=== PATIENT | female | born 1980 | race Caucasian/White ===

== ENCOUNTER 2021-05-03 08:27 | Day surgery (SDC) | payer OTHER ==
[2021-04-28 17:36] LABS: Hemoglobin 14.1 g/dL (12.0-15.5); Mean Corpuscular HGB CONC 33.7 g/dL (32.0-36.0); Mean Corpuscular Hemoglobin 29.4 pg (27.0-33.0); Mean Corpuscular Volume 87.3 fl (81.6-98.3); Mean Platelet Volume 9.8 fl (7.4-10.4); Platelet Count 308 10x3/uL (150-450); RBC Distribution Width 12.8 % (11.5-14.5); White Blood Cell (WBC) Count 8.8 10x3/uL (3.5-10.5)
[2021-04-28 17:48] LABS: BHCG - Serum Negative (NEGATIVE); Pregs Control Background? CLEAR/WHITE (CLR/WHITE); Pregs Control Bar Appear? YES (CONTROL BAR)
[2021-04-29 21:35] LABS: SARS-CoV-2 PCR by NAA Not Detected (NotDetected)
[2021-05-02 10:19] VITALS: BMI 27.3
[~2021-05-03 08:27] MED LIST: CeleCOXIB 100 MG CAP ONE; Famotidine/PF 20 mg/2ml Vial ONE; Gabapentin 300 MG CAP ONE; Lidocaine 1% MPF 2 ML VIAL ONE
[2021-05-03] MEDS ORDERED: metroNIDAZOLE 500 MG/100 ML BAG ONE (09:35)
[2021-05-03] MEDS ORDERED: Bupivacaine PF 0.5% 30 ML VIAL ONE (09:58)
[2021-05-03] MEDS ORDERED: EPINEPHrine 1 MG/ML AMP ONE (09:58)
[2021-05-03] MEDS ORDERED: Methylene Blue 50 MG/10 ML AMPUL ONE (09:59)
[2021-05-03] MEDS ORDERED: Lidocaine 0.5%/Epinephrine 1:200,000 50 ml Vial ONE (10:00)
[2021-05-03] MEDS ORDERED: Bupivacaine 0.25% HCL 30 ML VIAL ONE (10:01)
[2021-05-03] MEDS ORDERED: Midazolam HCl 2 mg/2 ml Vial ONE ×2 (10:26→15:01)
[2021-05-03] MEDS ORDERED: PROPOFOL 0 ML ONE (10:27)
[2021-05-03] MEDS ORDERED: Fentanyl 100 MCG/2 ML VIAL ONE ×4 (10:27→15:00)
[2021-05-03] MEDS ORDERED: Famotidine/PF 20 mg/2ml Vial ONE (10:33)
[2021-05-03] MEDS ORDERED: Ropivacaine 0.2% 550 ML 750 ML NERVE BLCK SCH (11:15)
[2021-05-03] MEDS ORDERED: PHENYLEPHRINE-NS 100 MCG/ML 10 ML SYRINGE ONE (13:02)
[2021-05-03] MEDS ORDERED: PROPOFOL 20 ML ONE (13:07)
[2021-05-03] MEDS ORDERED: Ketorolac Tromethamine 30 MG/ML VIAL ONE (13:35)
[2021-05-03] MEDS ORDERED: Dexamethasone 4 mg/ml Vial ONE (15:11)
[2021-05-03] MEDS ORDERED: diphenhydrAMINE 25 MG CAP PO PRN (15:58)
[2021-05-03] MEDS ORDERED: Bisacodyl 10 MG SUPP PR PRN (15:58)
[2021-05-03] MEDS ORDERED: Simethicone Chewable 80 MG TAB PO PRN (15:58)
[2021-05-03] MEDS ORDERED: Promethazine HCl 25 MG/ML VIAL IM PRN (15:58)
[2021-05-03] MEDS ORDERED: Morphine 2 MG/ML VIAL SLOW IVP PRN (15:58)
[2021-05-03] MEDS ORDERED: Morphine 4 MG/ML VIAL SLOW IVP PRN (15:58)
[2021-05-03] MEDS ORDERED: HYDROcodone/Acetaminophen 5/325 mg Tablet PO PRN ×2 (15:58)
[2021-05-03] MEDS ORDERED: traMADol HCl 50 MG TAB PO PRN (15:58)
[2021-05-03] MEDS ORDERED: Ondansetron PF 4 MG/2 ML Vial IVP PRN (15:58)
[2021-05-03] MEDS ORDERED: Zolpidem Tartrate 5 MG TAB PO PRN (15:58)
[2021-05-03] MEDS ORDERED: Fludrocortisone Acetate 0.1 MG TAB PO PRN (16:00)
[2021-05-03] MEDS ORDERED: Hydrocortisone 10 mg Tablet PO SCH (16:00)
[2021-05-03] MEDS: Sodium Chloride 0.9% 1,000 ML IV SCH (18:43)
[2021-05-03] MEDS ORDERED: Albuterol Sulfate 2.5 mg/3 ml Neb NEB PRN (19:07)
[2021-05-03] MEDS ORDERED: Mometasone/Formoterol 200/5 60 PUFF INH PRN (19:09)
[2021-05-03] MEDS ORDERED: SUMAtriptan Succinate 50 MG TAB PO PRN (19:12)
[2021-05-03] MEDS ORDERED: Zonisamide 25 MG CAP PO SCH (21:00)
[2021-05-03] MEDS ORDERED: Ibuprofen 800 MG TAB PO SCH (22:00)
[2021-05-04] MEDS ORDERED: diphenhydrAMINE 30 GM TUBE TOP PRN (00:25)
[2021-05-04] MEDS: Nabumetone 500 MG TAB PO SCH ×2 (05:33→07:17)
[2021-05-04] MEDS: Sodium Chloride 0.9% 1,000 ML IV SCH ×2 (05:34→10:28)
[2021-05-04] MEDS ORDERED: Ibuprofen 800 MG TAB PO SCH ×2 (06:00→11:00)
[2021-05-04 07:16] LABS: Hemoglobin 11.5 g/dL (12.0-15.5); Mean Corpuscular HGB CONC 34.1 g/dL (32.0-36.0); Mean Corpuscular Hemoglobin 29.8 pg (27.0-33.0); Mean Corpuscular Volume 87.3 fl (81.6-98.3); Mean Platelet Volume 9.9 fl (7.4-10.4); Platelet Count 248 10x3/uL (150-450); RBC Distribution Width 13.1 % (11.5-14.5); Red Blood Cell (RBC) Count 3.86 10x6/uL (3.90-5.03); White Blood Cell (WBC) Count 11.5 10x3/uL (3.5-10.5)
[2021-05-04 07:53] VITALS: BP 109/63; TEMP 98.6
[2021-05-04] MEDS ORDERED: Magnesium Oxide 400 MG TAB PO SCH (09:00)
[2021-05-04] MEDS ORDERED: Multivit, Therapeutic 1 TAB PO SCH (09:00)
[2021-05-04] MEDS ORDERED: Cholecalciferol 1,000 UNITS (25 MCG) TAB PO SCH (09:00)
[2021-05-04] MEDS ORDERED: Zonisamide 25 MG CAP PO SCH (09:00)
[2021-05-04] MEDS ORDERED: Ferrous Sulfate 325 MG TAB PO SCH (09:00)
[2021-05-04] MEDS ORDERED: Fish Oil 1,000 MG CAP PO SCH (09:00)
[2021-05-04] MEDS ORDERED: Famotidine 20 MG TAB PO SCH (09:00)
[2021-05-04] MEDS ORDERED: Loratadine 10 MG TAB PO SCH (09:00)
[2021-05-04] MEDS ORDERED: Hydrocortisone 10 mg Tablet PO SCH (11:00)
[2021-05-04] MEDS ORDERED: NITROFURANTOIN MACROCRYSTAL 25 MG PO SCH ×2 (21:00)
== END 2021-05-04 10:55 | disposition home or self-care (01) ==
LOC: CSHSDC 08:27 → CSHPED 17:22 → UNDOADMIN 17:22 → UNDODISIN 05-04 10:55 → CSHSDC 05-04 10:55
PROVIDERS: ATTEND Obstetrics & Gynecology
PROC: 0UT94ZZ Resection of Uterus, Percutaneous Endoscopic Approach (ICD-10-PCS; principal; 2021-05-03)
PROC: 0TSD0ZZ Reposition Urethra, Open Approach (ICD-10-PCS; principal; 2021-05-03)
PROC: 0JQC0ZZ Repair Pelvic Region Subcutaneous Tissue and Fascia, Open Approach (ICD-10-PCS; principal; 2021-05-03)
PROC: 0UT74ZZ Resection of Bilateral Fallopian Tubes, Percutaneous Endoscopic Approach (ICD-10-PCS; principal; 2021-05-03)
DX: D25.9 Leiomyoma of uterus, unspecified (principal); N80.0 Endometriosis of uterus; N72 Inflammatory disease of cervix uteri; N88.8 Other specified noninflammatory disorders of cervix uteri; N83.8 Other noninflammatory disorders of ovary, fallopian tube and broad ligament; N81.10 Cystocele, unspecified; N39.3 Stress incontinence (female) (male); N87.0 Mild cervical dysplasia; M19.90 Unspecified osteoarthritis, unspecified site; J45.909 Unspecified asthma, uncomplicated; M79.7 Fibromyalgia; R42 Dizziness and giddiness; Z79.899 Other long term (current) drug therapy; Z88.8 Allergy status to other drugs, medicaments and biological substances; Z91.013 Allergy to seafood; Z91.040 Latex allergy status; Z91.048 Other nonmedicinal substance allergy status
CPT/HCPCS: 36415; 84703; 85027; 86850; 86900; 86901; 88307; A4306; C1781; J0171; J0690; J1100; J1885; J2001; J2250; J2704; J2795; J3010; Q9968; S0020; S0028; U0003; U0005